=== PATIENT | male | born 1965 | race Caucasian/White ===

== ENCOUNTER 2017-11-16 23:42 | Inpatient (IN) | payer OTHER ==
[2017-11-17] MEDS ORDERED: ONDANSETRON 4 MG INJ IV (01:00)
[2017-11-17] MEDS ORDERED: NACL 0.9% 3 ML SYG IV (01:00)
[2017-11-17 01:23] LABS: ADD MAN DIFF? NO
[2017-11-17 01:26] LABS: BASOPHILS % 0.3 % (0.0-2.0); EOSINOPHILS % 0.3 % (0.0-7.0); HEMATOCRIT 35.5 % (42.0-52.0); HEMOGLOBIN 12.3 g/dl (14.0-18.0); LYMPHOCYTES # 1.5 10^3/ul (0.8-2.9); LYMPHOCYTES % 22.4 % (15.0-51.0); MEAN CORPUSCULAR HEMOGLOBIN 29.9 pg (29.0-33.0); MEAN CORPUSCULAR HGB CONC 34.6 g/dl (32.0-37.0); MEAN CORPUSCULAR VOLUME 86.4 fl (82.0-101.0); MEAN PLATELET VOLUME 9.8 fl (7.4-10.4); MONOCYTE # 0.6 10^3/ul (0.3-0.9); MONOCYTES % 8.3 % (0.0-11.0); NEUTROPHIL # 4.6 10^3/ul (1.6-7.5); NEUTROPHILS % 68.4 % (39.0-77.0); PLATELET COUNT 254 10^3/UL (140-415); RED BLOOD COUNT 4.11 10^6/ul (4.70-6.10); RED CELL DISTRIBUTION WIDTH 11.7 % (11.5-14.5)
[2017-11-17 01:26] LABS: WHITE BLOOD COUNT 6.8 10^3/ul (4.8-10.8)
[2017-11-17 01:45] LABS: ALANINE AMINOTRANSFERASE 21 IU/L (13-69); ALBUMIN 3.3 g/dl (3.3-4.9); ALBUMIN/GLOBULIN RATIO 0.89; ALKALINE PHOSPHATASE 137 IU/L (42-121); ANION GAP 13 (8-16); ASPARTATE AMINO TRANSFERASE 15 IU/L (15-46); BILIRUBIN,INDIRECT 0.4 mg/dl (0-1.1); BILIRUBIN,TOTAL 0.4 mg/dl (0.2-1.3); BLOOD UREA NITROGEN 15 mg/dl (7-20); CALCIUM 8.5 mg/dl (8.4-10.2); CARBON DIOXIDE 29 mmol/L (21-31); CHLORIDE 99 mmol/L (97-110); CHOLESTEROL 131 mg/dl (100-200); CREATININE 0.58 mg/dl (0.61-1.24); GLUCOSE 321 mg/dl (70-220); HDL CHOLESTEROL 32 mg/dl (28-71); LDL CHOLESTEROL,CALCULATED 81 mg/dl; MAGNESIUM 1.6 mg/dl (1.7-2.5); PHOSPHORUS 3.3 mg/dl (2.5-4.9); POTASSIUM 4.1 mmol/L (3.5-5.1); SODIUM 137 mmol/L (135-144); TRIGLYCERIDES 92 mg/dl (0-149)
[2017-11-17] MEDS: ACCU-CHEK XX (02:00)
[2017-11-17] MEDS ORDERED: PENDING SANTYL ORDER FOR WOUND CARE XX (02:30)
[2017-11-17] MEDS: SOD CHLORIDE 0.9% 1,000 ML IV ×4 (02:32→17:32)
[2017-11-17] MEDS ORDERED: GLUCAGON 1 MG INJ IM (03:00)
[2017-11-17] MEDS ORDERED: GLUCOSE GEL 15 GRAM TUBE BUCCAL (03:00)
[2017-11-17] MEDS ORDERED: GLUCOSE GEL 15 GRAM TUBE PO ×2 (03:00)
[2017-11-17] MEDS ORDERED: DEXTROSE 50% 50 ML SYRINGE IV ×2 (03:00)
[2017-11-17] MEDS: INSULIN ASPART [NOVOLOG] 3 ML PEN SC ×5 (08:12→22:34)
[2017-11-17] MEDS: INSULIN GLARGINE [LANtus] 3 ML PEN SC (08:13)
[2017-11-17] MEDS: HEPARIN 5,000 UNIT/0.5 ML VIAL SC ×2 (08:16→20:30)
[2017-11-17 10:21] LABS: ADD UMIC YES; UR ASCORBIC ACID NEGATIVE (NEGATIVE); UR BACTERIA FEW /HPF (NONE SEEN); UR BILIRUBIN (Dip) NEGATIVE (NEGATIVE); UR BLOOD (Dip) NEGATIVE (NEGATIVE); UR BUDDING YEAST FEW /HPF (NONE SEEN); UR CLARITY CLEAR (CLEAR); UR COLOR YELLOW (YELLOW); UR GLUCOSE (Dip) 3+ mg/dL (NEGATIVE); UR KETONES (Dip) TRACE mg/dL (NEGATIVE); UR LEUKOCYTE ESTERASE (Dip) TRACE Leu/ul (NEGATIVE); UR NITRITE (Dip) NEGATIVE (NEGATIVE); UR RBC 5 /HPF (0-5); UR SPECIFIC GRAVITY (Dip) 1.031 (1.003-1.030); UR TOTAL PROTEIN (Dip) NEGATIVE (NEGATIVE); UR UROBILINOGEN (Dip) 1+ mg/dL (NEGATIVE); UR WBC 2 /HPF (0-5)
[2017-11-17] MEDS ORDERED: VANCOMYCIN IV PER PHARMACY XX (16:00)
[2017-11-17] MEDS: SODIUM HYPOCHLORITE 1/40% 1L IRRIG IRR ×2 (17:00→22:34)
[2017-11-17] MEDS: VANCOMYCIN 1.25 GM in SOD CHLORIDE 0.9% 250 ML IVPB (18:20)
[2017-11-18] MEDS: ACCU-CHEK XX (02:00)
[2017-11-18] MEDS: VANCOMYCIN 750 MG in DEXTROSE 5% 150 ML IVPB ×3 (02:28→17:33)
[2017-11-18] MEDS: LEVOFLOXACIN 500 MG TAB NGT (05:43)
[2017-11-18] MEDS: morphine 2 MG INJ IV (05:44)
[2017-11-18 06:14] LABS: ADD MAN DIFF? NO
[2017-11-18 06:24] LABS: WHITE BLOOD COUNT 6.3 10^3/ul (4.8-10.8)
[2017-11-18 06:24] LABS: BASOPHILS % 0.3 % (0.0-2.0); EOSINOPHILS % 0.2 % (0.0-7.0); HEMATOCRIT 36.8 % (42.0-52.0); HEMOGLOBIN 12.9 g/dl (14.0-18.0); LYMPHOCYTES % 30.9 % (15.0-51.0); MEAN CORPUSCULAR HEMOGLOBIN 30.2 pg (29.0-33.0); MEAN CORPUSCULAR HGB CONC 35.1 g/dl (32.0-37.0); MEAN CORPUSCULAR VOLUME 86.2 fl (82.0-101.0); MEAN PLATELET VOLUME 9.9 fl (7.4-10.4); MONOCYTE # 0.5 10^3/ul (0.3-0.9); MONOCYTES % 7.4 % (0.0-11.0); NEUTROPHIL # 3.9 10^3/ul (1.6-7.5); NEUTROPHILS % 60.9 % (39.0-77.0); PLATELET COUNT 273 10^3/UL (140-415); RED BLOOD COUNT 4.27 10^6/ul (4.70-6.10); RED CELL DISTRIBUTION WIDTH 11.7 % (11.5-14.5)
[2017-11-18 06:47] LABS: ALANINE AMINOTRANSFERASE 23 IU/L (13-69); ALBUMIN 3.4 g/dl (3.3-4.9); ALBUMIN/GLOBULIN RATIO 0.85; ALKALINE PHOSPHATASE 113 IU/L (42-121); ANION GAP 14 (8-16); ASPARTATE AMINO TRANSFERASE 18 IU/L (15-46); BILIRUBIN,INDIRECT 0.1 mg/dl (0-1.1); BILIRUBIN,TOTAL 0.1 mg/dl (0.2-1.3); BLOOD UREA NITROGEN 9 mg/dl (7-20); CALCIUM 8.6 mg/dl (8.4-10.2); CARBON DIOXIDE 30 mmol/L (21-31); CHLORIDE 100 mmol/L (97-110); GLUCOSE 159 mg/dl (70-220); MAGNESIUM 1.7 mg/dl (1.7-2.5); PHOSPHORUS 3.9 mg/dl (2.5-4.9); POTASSIUM 4.3 mmol/L (3.5-5.1); SODIUM 140 mmol/L (135-144); TOTAL PROTEIN 7.4 g/dl (6.1-8.1)
[2017-11-18] MEDS: INSULIN ASPART [NOVOLOG] 3 ML PEN SC ×6 (08:05→20:34)
[2017-11-18] MEDS: HEPARIN 5,000 UNIT/0.5 ML VIAL SC ×2 (08:05→20:34)
[2017-11-18] MEDS: INSULIN GLARGINE [LANtus] 3 ML PEN SC (08:05)
[2017-11-18] MEDS: SODIUM HYPOCHLORITE 1/40% 1L IRRIG IRR ×2 (09:53→20:35)
[2017-11-18 18:13] LABS: VANCOMYCIN,TROUGH 7.9 ug/ml (10.0-20.0)
[2017-11-19] MEDS: INSULIN ASPART [NOVOLOG] 3 ML PEN SC ×9 (01:24→21:38)
[2017-11-19] MEDS: VANCOMYCIN 1.25 GM in SOD CHLORIDE 0.9% 250 ML IVPB ×3 (01:25→18:32)
[2017-11-19] MEDS: SODIUM HYPOCHLORITE 1/40% 1L IRRIG IRR ×3 (01:28→20:05)
[2017-11-19] MEDS: LEVOFLOXACIN 500 MG TAB NGT (05:06)
[2017-11-19 06:13] LABS: ADD MAN DIFF? NO
[2017-11-19 06:22] LABS: BASOPHILS % 0.4 % (0.0-2.0); EOSINOPHILS % 0.4 % (0.0-7.0); HEMATOCRIT 38.5 % (42.0-52.0); HEMOGLOBIN 13.3 g/dl (14.0-18.0); LYMPHOCYTES # 1.9 10^3/ul (0.8-2.9); LYMPHOCYTES % 41.3 % (15.0-51.0); MEAN CORPUSCULAR HEMOGLOBIN 29.6 pg (29.0-33.0); MEAN CORPUSCULAR HGB CONC 34.5 g/dl (32.0-37.0); MEAN CORPUSCULAR VOLUME 85.7 fl (82.0-101.0); MEAN PLATELET VOLUME 9.7 fl (7.4-10.4); MONOCYTE # 0.4 10^3/ul (0.3-0.9); MONOCYTES % 7.8 % (0.0-11.0); NEUTROPHIL # 2.3 10^3/ul (1.6-7.5); NEUTROPHILS % 49.9 % (39.0-77.0); PLATELET COUNT 311 10^3/UL (140-415); POSITIVE DIFF @See below; RED BLOOD COUNT 4.49 10^6/ul (4.70-6.10); RED CELL DISTRIBUTION WIDTH 11.5 % (11.5-14.5)
[2017-11-19 06:22] LABS: WHITE BLOOD COUNT 4.6 10^3/ul (4.8-10.8)
[2017-11-19 06:45] LABS: ANION GAP 14 (8-16); BLOOD UREA NITROGEN 13 mg/dl (7-20); CARBON DIOXIDE 30 mmol/L (21-31); CHLORIDE 102 mmol/L (97-110); CREATININE 0.61 mg/dl (0.61-1.24); GLUCOSE 219 mg/dl (70-220); POTASSIUM 4.2 mmol/L (3.5-5.1); SODIUM 142 mmol/L (135-144)
[2017-11-19 06:46] LABS: MAGNESIUM 1.9 mg/dl (1.7-2.5)
[2017-11-19] MEDS ORDERED: ONDANSETRON 4 MG INJ IV ×3 (07:00→17:00)
[2017-11-19] MEDS ORDERED: ATROPINE 1 MG/10 ML SYRINGE IV (07:00)
[2017-11-19] MEDS ORDERED: morphine (1 MG/ML) 10ML SYRINGE IV ×3 (07:00)
[2017-11-19] MEDS ORDERED: FENTAnyl 50 MCG/ML VIAL IV ×3 (07:00→17:00)
[2017-11-19] MEDS ORDERED: DIPHENHYDRAMINE 50 MG INJ IV ×2 (07:00→17:00)
[2017-11-19] MEDS ORDERED: hydrALAzine 20 MG INJ IV (07:00)
[2017-11-19] MEDS ORDERED: OXYCODONE/ACETAMINOPHEN (5/325) TAB PO ×2 (07:00)
[2017-11-19] MEDS ORDERED: LABETALOL HCL 20MG INJ IV (07:00)
[2017-11-19] MEDS ORDERED: EPHEDrine SULFATE 50 MG/5 ML SYG IV (07:00)
[2017-11-19] MEDS ORDERED: HYDROmorphONE (0.2 MG/ML) 10ML SYG IV ×5 (07:00→17:00)
[2017-11-19] MEDS ORDERED: MEPERIDINE 25 MG INJ IV ×2 (07:00→17:00)
[2017-11-19] MEDS ORDERED: MIDAZOLAM 1 MG/ML 2 ML INJ IV (07:00)
[2017-11-19] MEDS: morphine 2 MG INJ IV ×2 (08:04→23:14)
[2017-11-19] MEDS: HEPARIN 5,000 UNIT/0.5 ML VIAL SC ×2 (08:19→20:05)
[2017-11-19] MEDS: INSULIN GLARGINE [LANtus] 3 ML PEN SC (08:48)
[2017-11-19] MEDS ORDERED: MIDAZOLAM 1 MG/ML 2 ML INJ (15:55)
[2017-11-19] MEDS ORDERED: PHENYLephrine (100 MCG/ML) 5ML SYG (16:04)
[2017-11-19] MEDS: POLYMYXIN/BACITRACIN 1L IRRIG (16:19)
[2017-11-19] MEDS ORDERED: ETOMIDATE 20 MG INJ (16:41)
[2017-11-19] MEDS ORDERED: LIDOCAINE 2% (SDV) 5 ML INJ (16:41)
[2017-11-19] MEDS ORDERED: CEFAZOLIN 1 GM INJ (16:41)
[2017-11-19] MEDS ORDERED: ONDANSETRON 4 MG INJ (16:45)
[2017-11-19] MEDS ORDERED: METOCLOPRAMIDE 10 MG INJ IV (17:00)
[2017-11-20] MEDS: DIPHENHYDRAMINE 25 MG CAP PO (01:33)
[2017-11-20] MEDS: ACCU-CHEK XX (01:56)
[2017-11-20 02:00] LABS: VANCOMYCIN,TROUGH 15.6 ug/ml (10.0-20.0)
[2017-11-20] MEDS: VANCOMYCIN 1.25 GM in SOD CHLORIDE 0.9% 250 ML IVPB ×3 (02:36→17:49)
[2017-11-20] MEDS: morphine 2 MG INJ IV ×4 (03:28→20:10)
[2017-11-20] MEDS: LEVOFLOXACIN 500 MG TAB NGT (05:38)
[2017-11-20 05:53] LABS: ADD MAN DIFF? NO
[2017-11-20 06:13] LABS: WHITE BLOOD COUNT 6.2 10^3/ul (4.8-10.8)
[2017-11-20 06:13] LABS: BASOPHILS % 0.6 % (0.0-2.0); EOSINOPHILS % 0.5 % (0.0-7.0); HEMATOCRIT 39.1 % (42.0-52.0); HEMOGLOBIN 13.3 g/dl (14.0-18.0); LYMPHOCYTES # 1.9 10^3/ul (0.8-2.9); LYMPHOCYTES % 30.9 % (15.0-51.0); MEAN CORPUSCULAR HEMOGLOBIN 29.6 pg (29.0-33.0); MEAN CORPUSCULAR VOLUME 86.9 fl (82.0-101.0); MEAN PLATELET VOLUME 9.6 fl (7.4-10.4); MONOCYTE # 0.5 10^3/ul (0.3-0.9); MONOCYTES % 7.2 % (0.0-11.0); NEUTROPHIL # 3.8 10^3/ul (1.6-7.5); NEUTROPHILS % 60.3 % (39.0-77.0); PLATELET COUNT 332 10^3/UL (140-415); RED CELL DISTRIBUTION WIDTH 11.5 % (11.5-14.5)
[2017-11-20 06:32] LABS: MAGNESIUM 1.9 mg/dl (1.7-2.5)
[2017-11-20 06:35] LABS: ANION GAP 13 (8-16); BLOOD UREA NITROGEN 12 mg/dl (7-20); CALCIUM 8.8 mg/dl (8.4-10.2); CARBON DIOXIDE 31 mmol/L (21-31); CHLORIDE 101 mmol/L (97-110); CREATININE 0.65 mg/dl (0.61-1.24); GLUCOSE 193 mg/dl (70-220); POTASSIUM 4.3 mmol/L (3.5-5.1); SODIUM 141 mmol/L (135-144)
[2017-11-20] MEDS: SODIUM HYPOCHLORITE 1/40% 1L IRRIG IRR ×2 (08:07→20:18)
[2017-11-20] MEDS: INSULIN ASPART [NOVOLOG] 3 ML PEN SC ×7 (08:16→20:19)
[2017-11-20] MEDS: INSULIN GLARGINE [LANtus] 3 ML PEN SC (08:17)
[2017-11-20] MEDS: HEPARIN 5,000 UNIT/0.5 ML VIAL SC ×2 (08:18→20:11)
[2017-11-20] MEDS: DOCUSATE SODIUM 100 MG CAP PO ×2 (08:19→20:09)
[2017-11-20] MEDS: POLYETHYLENE GLYCOL 17 GM PACKET PO (08:19)
[2017-11-20] MEDS ORDERED: LIDOCAINE 1% (MPF) 5 ML VIAL SC (14:30)
[2017-11-20 15:21] LABS: INR 1.05; PROTIME 13.8 Sec (11.9-14.9); PT RATIO 1.1
[2017-11-20 15:22] LABS: PARTIAL THROMBOPLASTIN TIME 29.2 Sec (25.0-35.0)
[2017-11-21] MEDS: ACCU-CHEK XX (01:54)
[2017-11-21] MEDS: VANCOMYCIN 1.25 GM in SOD CHLORIDE 0.9% 250 ML IVPB ×3 (01:54→17:41)
[2017-11-21] MEDS: ACETAMINOPHEN 325 MG TAB PO ×2 (02:00→21:00)
[2017-11-21 06:01] LABS: ADD MAN DIFF? NO
[2017-11-21 06:07] LABS: BASOPHILS % 0.4 % (0.0-2.0); EOSINOPHILS % 0.9 % (0.0-7.0); HEMATOCRIT 39.3 % (42.0-52.0); HEMOGLOBIN 13.6 g/dl (14.0-18.0); LYMPHOCYTES % 44.1 % (15.0-51.0); MEAN CORPUSCULAR HEMOGLOBIN 29.9 pg (29.0-33.0); MEAN CORPUSCULAR HGB CONC 34.6 g/dl (32.0-37.0); MEAN CORPUSCULAR VOLUME 86.4 fl (82.0-101.0); MEAN PLATELET VOLUME 9.5 fl (7.4-10.4); MONOCYTE # 0.4 10^3/ul (0.3-0.9); MONOCYTES % 9.2 % (0.0-11.0); NEUTROPHIL # 2.1 10^3/ul (1.6-7.5); NEUTROPHILS % 45.2 % (39.0-77.0); PLATELET COUNT 328 10^3/UL (140-415); RED BLOOD COUNT 4.55 10^6/ul (4.70-6.10); RED CELL DISTRIBUTION WIDTH 11.6 % (11.5-14.5)
[2017-11-21 06:07] LABS: WHITE BLOOD COUNT 4.6 10^3/ul (4.8-10.8)
[2017-11-21 06:23] LABS: ANION GAP 15 (8-16); BLOOD UREA NITROGEN 11 mg/dl (7-20); CALCIUM 9.2 mg/dl (8.4-10.2); CARBON DIOXIDE 31 mmol/L (21-31); CHLORIDE 100 mmol/L (97-110); CREATININE 0.59 mg/dl (0.61-1.24); GLUCOSE 262 mg/dl (70-220); POTASSIUM 4.6 mmol/L (3.5-5.1); SODIUM 141 mmol/L (135-144)
[2017-11-21] MEDS: LEVOFLOXACIN 500 MG TAB NGT (06:23)
[2017-11-21 06:29] LABS: MAGNESIUM 1.9 mg/dl (1.7-2.5)
[2017-11-21 06:29] LABS: PHOSPHORUS 3.6 mg/dl (2.5-4.9)
[2017-11-21] MEDS: POLYETHYLENE GLYCOL 17 GM PACKET PO (08:33)
[2017-11-21] MEDS: DOCUSATE SODIUM 100 MG CAP PO ×2 (08:33→21:00)
[2017-11-21] MEDS: INSULIN ASPART [NOVOLOG] 3 ML PEN SC ×7 (08:41→21:03)
[2017-11-21] MEDS: INSULIN GLARGINE [LANtus] 3 ML PEN SC (08:42)
[2017-11-21] MEDS: HEPARIN 5,000 UNIT/0.5 ML VIAL SC ×2 (08:42→21:03)
[2017-11-21] MEDS: SODIUM HYPOCHLORITE 1/40% 1L IRRIG IRR (09:00)
[2017-11-21] MEDS: LISINOPRIL 5 MG TAB PO (12:16)
[2017-11-21] MEDS: IBUPROFEN 600 MG TAB PO (18:33)
== END 2017-11-21 21:40 | DRG 988 ==
LOC: MS2 11-17 00:17
PROC: 0QBR0ZX Excision of Left Toe Phalanx, Open Approach, Diagnostic (ICD-10-PCS; principal; 2017-11-19 15:00)
PROC: 0QBQ0ZX Excision of Right Toe Phalanx, Open Approach, Diagnostic (ICD-10-PCS; 2017-11-19 15:00)
PROC: 02HV33Z Insertion of Infusion Device into Superior Vena Cava, Percutaneous Approach (ICD-10-PCS; 2017-11-19 15:51)
DX: E11.69 Type 2 diabetes mellitus with other specified complication (principal); M86.8X7 Other osteomyelitis, ankle and foot; E11.42 Type 2 diabetes mellitus with diabetic polyneuropathy; E11.621 Type 2 diabetes mellitus with foot ulcer; L97.529 Non-pressure chronic ulcer of other part of left foot with unspecified severity; L97.519 Non-pressure chronic ulcer of other part of right foot with unspecified severity; E11.65 Type 2 diabetes mellitus with hyperglycemia; D64.9 Anemia, unspecified; Z59.0 Homelessness; L03.032 Cellulitis of left toe; L03.031 Cellulitis of right toe; B95.2 Enterococcus as the cause of diseases classified elsewhere; B95.7 Other staphylococcus as the cause of diseases classified elsewhere; B96.1 Klebsiella pneumoniae [K. pneumoniae] as the cause of diseases classified elsewhere; B96.4 Proteus (mirabilis) (morganii) as the cause of diseases classified elsewhere
CPT/HCPCS: 36569; 71045; 72040; 73718; 76937; 80048; 80053; 80061; 80202; 81001; 82962; 83735; 84100; 85025; 85610; 85730; 87070; 87075; 87102; 87116; 88305; 88311